=== PATIENT | female | born 1960 | race Caucasian/White ===

== ENCOUNTER 2022-04-23 05:38 | Outpatient (CLI) | payer BC ==
[~2022-04-23] VITALS: Ht 162.5 cm; Wt 68.1 kg
[2022-04-23] MEDS ORDERED: CITA10TA12 PO (12:20)
[2022-04-23] MEDS ORDERED: LEVO100C4 PO (12:20)
[2022-04-23] MEDS ORDERED: BUPR300T98 PO (12:20)
== END 2022-04-23 13:37 ==
LOC: PREOP 05:38
PROVIDERS: ATTEND Specialist
DX: Z01.818 Encounter for other preprocedural examination (principal); H25.9 Unspecified age-related cataract

== ENCOUNTER 2022-04-26 09:17 | Day surgery (SDC) | payer BC ==
[~2022-04-26] VITALS: Ht 162.5 cm; Wt 68.1 kg
[~2022-04-26 09:17] MED LIST: BUPR300T98 PO; CITA10TA12 PO; LEVO100C4 PO
[2022-04-26] MEDS ORDERED: TIMOLOL MALEATE 0.5% 5 ML (TIMOPTIC) BTL OU PRN (09:30)
[2022-04-26] MEDS ORDERED: MOXIFLOXACIN OPHTH SOLN 5 MG/ML 0.3 ML SYRINGE OP ONE (09:30)
[2022-04-26] MEDS ORDERED: POVIDONE (BETADINE) OPHTH SOLN 5% 30 ML OP ONE (09:30)
[2022-04-26] MEDS: TETRACAINE 0.5% OPHTH SOLN 4 ML BTL (SINGLE DOSE ONLY) OU PRN ×4 (09:34→09:51)
[2022-04-26] MEDS ORDERED: MIDAZOLAM 2 MG/2 ML (VERSED) VIAL ONE (09:38)
[2022-04-26] MEDS: TROPICAMIDE 1% OPH SOLN (MYDRIACYL) 15 ML BTL OP SCH ×3 (09:41→09:51)
[2022-04-26] MEDS: PHENYLEPHRINE 10% OPHTH (NEO-SYN) 5 ML BTL OU SCH ×3 (09:41→09:51)
[2022-04-26 09:42] VITALS: BP 151/96
--- NOTE | 2022-04-26 09:52 | Ophthalmologist Pre-Op Note ---
Pre-Operative Progress Note H&P Reviewed The H&P was reviewed, patient examined and no changes noted. Date H&P Reviewed: Apr 26, 2022 Time H&P Reviewed: 09:52 Pre-Op Dx Cataract, Left Eye MIKE MATT MD Apr 26, 2022 09:52
--- NOTE | 2022-04-26 10:16 | Ophthalmology Operative Report ---
Cataract removal/placement IOL PREOPERATIVE DIAGNOSIS: Cataract Left Eye POSTOPERATIVE DIAGNOSIS: Cataract Left Eye PROCEDURE: Cataract removal and placement of posterior chamber implant, left eye SURGEON: Colton Matt ANESTHESIA: Topical with sedation COMPLICATIONS: None ESTIMATED BLOOD LOSS: Minimal DESCRIPTION OF PROCEDURE: After proper informed consent was obtained, the patient, a 62 female, was taken to the Operating Room and the left eye was anesthetized with tetracaine. The left eye was then prepped and draped in the usual manner. A wire lid speculum was placed. A paracentesis was made at the left hand position. Preservative free lidocaine was injected into the anterior chamber followed by viscoelastic. A clear corneal incision was made in the temporal position. A capsulorrhexis was preformed and the central nuclear and cortical material were removed. The posterior capsule was polished and an Lázaro 10.5 AU00T0 was placed into the capsular bag. The residual viscoelastic was aspirated and balanced saline solution was injected into the anterior chamber. Moxifloxacin was injected into the anterior chamber. The wound was checked and found to be water tight. The patient tolerated the procedure well without complications. COLTON MATT MD Apr 26, 2022 10:16
[2022-04-26 10:31] VITALS: BP 137/79
[2022-04-26] MEDS ORDERED: acetaZOLAMIDE ER 500 MG CAP (DIAMOX SEQUELS) PO ONE (11:30)
--- NOTE | 2022-04-26 14:49 | Anesthesia-General Post-Op ---
MAC Patient Condition Mental Status/LOC: Same as Preop Cardiovascular: Satisfactory Nausea/Vomiting: Absent Respiratory: Satisfactory Pain: Controlled Complications: Absent Post Op Complications Complications None Follow Up Care/Instructions Patient Instructions None needed. Anesthesiology Discharge Order Discharge Order Patient is doing well, no complaints, stable vital signs, no apparent adverse anesthesia problems. No complications reported per nursing. JOSÉ MIGUEL CHAIREZ CRNA Apr 26, 2022 14:49
== END 2022-04-26 10:32 ==
LOC: SDC 09:17
PROVIDERS: ATTEND Specialist
DX: H25.12 Age-related nuclear cataract, left eye (principal)
CPT/HCPCS: 66984; V2632

== ENCOUNTER 2022-05-02 06:05 | Outpatient (CLI) | payer BC | END 2022-05-06 11:54 | LOC: PREOP 06:05 | PROVIDERS: ATTEND Specialist | DX: Z01.818 Encounter for other preprocedural examination (principal); H25.11 Age-related nuclear cataract, right eye ==

== ENCOUNTER 2022-05-10 09:25 | Day surgery (SDC) | payer BC ==
[~2022-05-10] VITALS: Ht 162.5 cm; Wt 68.1 kg
[2022-05-10] MEDS: TETRACAINE 0.5% OPHTH SOLN 4 ML BTL (SINGLE DOSE ONLY) OU PRN ×3 (09:34→09:48)
[2022-05-10] MEDS: TROPICAMIDE 1% OPH SOLN (MYDRIACYL) 15 ML BTL OP SCH ×3 (09:44→09:55)
[2022-05-10] MEDS: PHENYLEPHRINE 10% OPHTH (NEO-SYN) 5 ML BTL OU SCH ×3 (09:44→09:55)
[2022-05-10 09:45] VITALS: BP 145/92
[2022-05-10] MEDS ORDERED: POVIDONE (BETADINE) OPHTH SOLN 5% 30 ML OP ONE (09:45)
[2022-05-10] MEDS ORDERED: TIMOLOL MALEATE 0.5% 5 ML (TIMOPTIC) BTL OU PRN (09:45)
[2022-05-10] MEDS ORDERED: MOXIFLOXACIN OPHTH SOLN 5 MG/ML 0.3 ML SYRINGE OP ONE (09:45)
[2022-05-10] MEDS ORDERED: MIDAZOLAM 2 MG/2 ML (VERSED) VIAL ONE (10:16)
--- NOTE | 2022-05-10 10:19 | Ophthalmologist Pre-Op Note ---
Pre-Operative Progress Note H&P Reviewed The H&P was reviewed, patient examined and no changes noted. Date H&P Reviewed: May 10, 2022 Time H&P Reviewed: 10:19 Pre-Op Dx Cataract, Right Eye MIKE MATT MD May 10, 2022 10:19
[2022-05-10] MEDS ORDERED: acetaZOLAMIDE ER 500 MG CAP (DIAMOX SEQUELS) PO ONE (10:30)
--- NOTE | 2022-05-10 10:44 | Ophthalmology Operative Report ---
Cataract removal/placement IOL PREOPERATIVE DIAGNOSIS: Cataract Right Eye POSTOPERATIVE DIAGNOSIS: Cataract Right Eye PROCEDURE: Cataract removal and placement of posterior chamber implant, right eye SURGEON: Colton Matt ANESTHESIA: Topical with sedation COMPLICATIONS: None ESTIMATED BLOOD LOSS: Minimal DESCRIPTION OF PROCEDURE: After proper informed consent was obtained, the patient, a 62 female, was taken to the Operating Room and the right eye was anesthetized with tetracaine. The right eye was then prepped and draped in the usual manner. A wire lid speculum was placed. A paracentesis was made at the left hand position. Preservative free lidocaine was injected into the anterior chamber followed by viscoelastic. A clear corneal incision was made in the temporal position. A capsulorrhexis was preformed and the central nuclear and cortical material were removed. The posterior capsule was polished and Lázaro 10.5 AU00T0 IOL was placed into the capsular bag. The residual viscoelastic was aspirated and balanced saline solution was injected into the anterior chamber. Moxifloxacin was injected into the anterior chamber. The wound was checked and found to be water tight. The patient tolerated the procedure well without complications. COLTON MATT MD May 10, 2022 10:44
[2022-05-10 11:07] VITALS: BP 144/85
--- NOTE | 2022-05-10 12:47 | Anesthesia-General Post-Op ---
MAC Patient Condition Mental Status/LOC: Same as Preop Cardiovascular: Satisfactory Nausea/Vomiting: Absent Respiratory: Satisfactory Pain: Controlled Complications: Absent Post Op Complications Complications None Follow Up Care/Instructions Patient Instructions None needed. Anesthesiology Discharge Order Discharge Order Patient is doing well, no complaints, stable vital signs, no apparent adverse anesthesia problems. No complications reported per nursing. DARA GERMAN CRNA May 10, 2022 12:47
== END 2022-05-10 11:14 | disposition home or self-care (01) ==
LOC: SDC 09:25
PROVIDERS: ATTEND Specialist
DX: H25.9 Unspecified age-related cataract (principal)
CPT/HCPCS: 66984; V2632; 93005

== ENCOUNTER 2023-07-18 10:11 | Outpatient (CLI) | payer BC ==
[~2023-07-18] VITALS: Ht 162.5 cm; Wt 68.1 kg
== END 2023-07-18 14:00 | disposition home or self-care (01) ==
LOC: PREOP 10:11
PROVIDERS: ATTEND Specialist
DX: Z01.818 Encounter for other preprocedural examination (principal)

== ENCOUNTER 2023-07-25 10:03 | Day surgery (SDC) | payer BC ==
[~2023-07-25] VITALS: Ht 150 cm; Wt 68.1 kg
--- NOTE | 2023-07-25 10:18 | Ophthalmologist Pre-Op Note ---
Pre-Operative Progress Note H&P Reviewed The H&P was reviewed, patient examined and no changes noted. Date H&P Reviewed: Jul 25, 2023 Time H&P Reviewed: 10:18 Pre-Op Dx Secondary Cataract, Right Eye MIKE MATT MD Jul 25, 2023 10:18
[2023-07-25 10:30] VITALS: BP 151/82
[2023-07-25] MEDS: TETRACAINE 0.5% OPHTH SOLN 5 ML BTL OU PRN ×2 (10:39→10:48)
[2023-07-25] MEDS: TROPICAMIDE 1% OPH SOLN (MYDRIACYL) 15 ML BTL OU PRN ×2 (10:39→10:49)
[2023-07-25] MEDS: PHENYLEPHRINE 10% OPHTH SOLN 5 ML BTL OU PRN ×2 (10:39→10:48)
[2023-07-25 11:30] VITALS: BP 151/82
--- NOTE | 2023-07-25 11:34 | Ophthalmology Operative Report ---
YAG Capsulotomy PREOPERATIVE DIAGNOSIS: Secondary Cataract Left Eye POSTOPERATIVE DIAGNOSIS: Secondary Cataract Left Eye PROCEDURE: YAG Capsulotomy, left eye SURGEON: Colton Matt ANESTHESIA: Topical anesthesia COMPLICATIONS: None ESTIMATED BLOOD LOSS: Minimal DESCRIPTION OF PROCEDURE: After proper informed consent was obtained, the patient's, a 63 female left eye received one drop of Tropicamide and one drop of Tetracaine. The patient was then placed at the YAG laser and using a power of [4.5 ] millijoules and [19 ] bursts were used to fashion a central capsulotomy. The patient tolerated the procedure well without complications. COLTON MATT MD Jul 25, 2023 11:34
== END 2023-07-25 11:30 ==
LOC: SDC 10:03
PROVIDERS: ATTEND Specialist
DX: H26.492 Other secondary cataract, left eye (principal)